=== PATIENT | male | born 1970 ===

== ENCOUNTER 2017-09-03 00:01 | Emergency (ER) | payer BC, OTHER ==
[2017-09-03 00:06] VITALS: RESP 18
[2017-09-03] MEDS ORDERED: Sodium Chloride 0.9% 1,000 ML IV STA (00:40)
--- NOTE | 2017-09-03 01:32 | ED PDOC ---
HPI: Headache Time Seen by Provider: 09/03/17 00:13 Chief Complaint (Nursing): Headache History Per: Patient History/Exam Limitations: no limitations Onset/Duration Of Symptoms: Hrs Current Symptoms Are (Timing): Still Present Quality: Aching Associated Symptoms: Photophobia Additional History Per: Patient Additional Complaint(s): Hx of migraines presenting with headache, states it started gradually at 11AM while at work, states he felt dizziness, weakness, and stomach pain. States he vomited several times while at work but does not know color or consistency because he states he did not look. States he has had headaches like this in the past but long time ago. Denies neck stiffness, thunderclap quality, fevers. States he has photophobia currently. Past Medical History Reviewed: Historical Data, Nursing Documentation, Vital Signs Vital Signs: Last Vital Signs Temp 98.0 F 09/03/17 00:02 Pulse 65 09/03/17 00:02 Resp 18 09/03/17 00:02 BP 133/85 09/03/17 00:02 Pulse Ox 100 09/03/17 00:02 - Medical History PMH: Migraine - Family History Family History: States: Unknown Family Hx - Immunization History Hx Tetanus Toxoid Vaccination: No Hx Influenza Vaccination: No Hx Pneumococcal Vaccination: No - Home Medications Home Medications: Ambulatory Orders Medication Instructions Recorded No Known Home Med [No Known Home 02/21/13 Med] - Allergies Allergies/Adverse Reactions: Allergies Allergy/AdvReac Type Severity Reaction Status Date / Time No Known Allergies Allergy Unverified 09/03/17 00:02 Review of Systems ROS Statement: Except As Marked, All Systems Reviewed And Found Negative Neurological: Positive for: Weakness, Headache, Dizziness Physical Exam - Reviewed Nursing Documentation Reviewed: Yes Vital Signs Reviewed: Yes - Physical Exam Appears: Positive for: Well, Non-toxic, Uncomfortable Head Exam: Positive for: ATRAUMATIC, NORMAL INSPECTION, NORMOCEPHALIC Skin: Positive for: Normal Color, Warm, DRY Eye Exam: Positive for: EOMI, Normal appearance, PERRL ENT: Positive for: Normal ENT Inspection Neck: Positive for: Normal, Painless ROM Cardiovascular/Chest: Positive for: Regular Rate, Rhythm Respiratory: Positive for: CNT, Normal Breath Sounds Gastrointestinal/Abdominal: Positive for: Normal Exam, Soft Back: Positive for: Normal Inspection Extremity: Positive for: Normal ROM Neurologic/Psych: Positive for: Alert, general maintenance helper II-XII, Oriented, Mood/Affect (normal ), Cerebellar Tests (normal), Gait (normal). Negative for: Motor/Sensory Deficits, Aphasia, Facial Droop - ECG O2 Sat by Pulse Oximetry: 100 Pulse Ox Interpretation: Normal Medical Decision Making Medical Decision Makin A/P: Hx of migraines presenting with headache -patient uncomfortable, however normal neuro exam, normal vitals, no neck stiffness, no meningismus -not concnered for SAH, meningitis, or life threatening neuro cause -will give IV reglan and toradol, IVF, and re-sasha 0300 Patient significantly improved, no longer having headache, tolerating PO. Will d/c home with return precautions. Disposition - Clinical Impression Clinical Impression: Migraine - Disposition Referrals: Alis Monique [Outside] Disposition Time: 03:00 Condition: STABLE Instructions: Migraine Headache (DC) Forms: [employer] (Haitian) Print Language: [email or web address]
[2017-09-03 02:50] VITALS: BP 113/74; PULSE 52; TEMP 97.6
[2017-09-03 19:47] VITALS: O2SAT 100
== END 2017-09-03 02:53 | disposition home or self-care (01) ==
LOC: H.ER 00:01
DX: G43.909 Migraine, unspecified, not intractable, without status migrainosus (principal)
CPT/HCPCS: 96361; 96374; 96375; 99285; J1885; J2765; J7030